=== PATIENT | female | born 1995 | race Two or more races ===

== ENCOUNTER 2017-06-27 04:01 | Inpatient (IN) | payer MEDICAID ==
[2017-06-27] MEDS ORDERED: BETAMET NA PHOS/AC(6 MG/ML) 5ML INJ IM (05:00)
[2017-06-27] MEDS: LACTATED RINGER'S 1,000 ML IV ×2 (05:05→20:31)
[2017-06-27 05:20] LABS: ADD MAN DIFF? NO
[2017-06-27] MEDS: MAGNESIUM SULFATE 4 GM/100 ML 100 ML IV (05:22)
[2017-06-27 05:26] LABS: ADD UMIC YES; UR ASCORBIC ACID NEGATIVE (NEGATIVE); UR BACTERIA FEW /HPF (NONE SEEN); UR BILIRUBIN (Dip) NEGATIVE (NEGATIVE); UR BLOOD (Dip) NEGATIVE (NEGATIVE); UR CLARITY CLEAR (CLEAR); UR COLOR STRAW (YELLOW); UR GLUCOSE (Dip) NEGATIVE (NEGATIVE); UR KETONES (Dip) 1+ mg/dL (NEGATIVE); UR LEUKOCYTE ESTERASE (Dip) TRACE Leu/ul (NEGATIVE); UR NITRITE (Dip) NEGATIVE (NEGATIVE); UR RBC 0 /HPF (0-5); UR SPECIFIC GRAVITY (Dip) 1.008 (1.003-1.030); UR TOTAL PROTEIN (Dip) NEGATIVE (NEGATIVE); UR UROBILINOGEN (Dip) NEGATIVE (NEGATIVE); UR WBC 3 /HPF (0-5)
[2017-06-27 05:28] LABS: BASOPHIL # 0.1 10^3/ul (0.0-0.1); BASOPHILS % 0.7 % (0.0-2.0); EOSINOPHILS # 0.1 10^3/ul (0.0-0.5); EOSINOPHILS % 1.9 % (0.0-7.0); HEMATOCRIT 32.1 % (37.0-47.0); LYMPHOCYTES # 2.1 10^3/ul (0.8-2.9); LYMPHOCYTES % 27.6 % (15.0-51.0); MEAN CORPUSCULAR HGB CONC 34.3 g/dl (32.0-37.0); MEAN CORPUSCULAR VOLUME 96.4 fl (82.0-101.0); MEAN PLATELET VOLUME 10.8 fl (7.4-10.4); MONOCYTE # 0.6 10^3/ul (0.3-0.9); MONOCYTES % 7.9 % (0.0-11.0); NEUTROPHIL # 4.6 10^3/ul (1.6-7.5); NEUTROPHILS % 61.4 % (39.0-77.0); PLATELET COUNT 201 10^3/UL (140-415); RED BLOOD COUNT 3.33 10^6/ul (4.20-5.40); RED CELL DISTRIBUTION WIDTH 12.9 % (11.5-14.5)
[2017-06-27 05:28] LABS: WHITE BLOOD COUNT 7.6 10^3/ul (4.8-10.8)
[2017-06-27 05:48] LABS: ALANINE AMINOTRANSFERASE 35 IU/L (13-69); ALBUMIN 3.3 g/dl (3.3-4.9); ALBUMIN/GLOBULIN RATIO 1.13; ALKALINE PHOSPHATASE 73 IU/L (42-121); ANION GAP 13 (8-16); ASPARTATE AMINO TRANSFERASE 34 IU/L (15-46); BLOOD UREA NITROGEN 8 mg/dl (7-20); CALCIUM 9.2 mg/dl (8.4-10.2); CARBON DIOXIDE 26 mmol/L (21-31); CHLORIDE 106 mmol/L (97-110); GLUCOSE 78 mg/dl (70-220); POTASSIUM 3.8 mmol/L (3.5-5.1); SODIUM 141 mmol/L (135-144); TOTAL PROTEIN 6.2 g/dl (6.1-8.1)
[2017-06-27] MEDS: MAGNESIUM SULFATE 20 GM/500 ML 500 ML IV ×2 (05:57→16:18)
[2017-06-27] MEDS: AMPICILLIN 2 GM/NS (PMX) 100 ML IV (06:00)
[2017-06-27] MEDS: BETAMET NA PHOS/AC(6 MG/ML) 5ML INJ IM ×2 (06:06→09:00)
[2017-06-27] MEDS: INDOMETHACIN 50 MG PO (08:00)
[2017-06-27] MEDS: ASPIRIN 81 MG TAB PO (08:57)
[2017-06-27] MEDS: AMPICILLIN 1 GM/NS (PMX) 50 ML IV ×4 (09:53→22:16)
[2017-06-27 11:27] LABS: INR 1.06; PROTIME 13.9 Sec (11.9-14.9); PT RATIO 1.1
[2017-06-27 11:28] LABS: PARTIAL THROMBOPLASTIN TIME 26.3 Sec (25.0-35.0)
[2017-06-27 11:57] LABS: HEPATITIS B SURFACE ANTIGEN NEGATIVE (NEGATIVE)
[2017-06-27 12:14] LABS: HIV 1&2 ANTIBODY NEGATIVE (NEGATIVE)
[2017-06-27 12:35] LABS: MAGNESIUM 1.8 mg/dl (1.7-2.5)
[2017-06-27] MEDS: INDOMETHACIN 25 MG PO (14:17)
[2017-06-27 18:40] LABS: MAGNESIUM 5.8 mg/dl (1.7-2.5)
[2017-06-27 23:17] LABS: RAPID PLASMA REAGIN NONREACTIVE (NR)
[2017-06-28] MEDS: INDOMETHACIN 25 MG PO ×5 (00:05→23:47)
[2017-06-28] MEDS: MAGNESIUM SULFATE 20 GM/500 ML 500 ML IV ×3 (00:40→21:37)
[2017-06-28] MEDS: AMPICILLIN 1 GM/NS (PMX) 50 ML IV ×6 (02:46→22:22)
[2017-06-28] MEDS: BETAMET NA PHOS/AC(6 MG/ML) 5ML INJ IM (06:27)
[2017-06-28 06:31] LABS: MAGNESIUM 6.2 mg/dl (1.7-2.5)
[2017-06-28] MEDS ORDERED: INDOMETHACIN 25 MG PO (08:00)
[2017-06-28] MEDS: ASPIRIN 81 MG TAB PO (09:50)
[2017-06-28] MEDS: LACTATED RINGER'S 1,000 ML IV (12:04)
[2017-06-29] MEDS: AMPICILLIN 1 GM/NS (PMX) 50 ML IV ×2 (02:15→05:55)
[2017-06-29] MEDS: LACTATED RINGER'S 1,000 ML IV ×5 (02:20→15:16)
[2017-06-29] MEDS: INDOMETHACIN 25 MG PO ×3 (05:54→18:27)
[2017-06-29] MEDS: MAGNESIUM SULFATE 20 GM/500 ML 500 ML IV (07:10)
[2017-06-29 11:22] LABS: RUBELLA ANTIBODY - IGG 7.59 index; RUBELLA ANTIBODY - IGM <20.00 AU/mL
[2017-06-29] MEDS: ASPIRIN 81 MG TAB PO (12:42)
[2017-06-30] MEDS: INDOMETHACIN 25 MG PO ×5 (01:14→23:35)
[2017-06-30] MEDS: FAMOTIDINE 20 MG INJ IV ×2 (01:25→20:59)
[2017-06-30] MEDS: LACTATED RINGER'S 1,000 ML IV ×2 (02:30→05:57)
[2017-06-30] MEDS ORDERED: FAMOTIDINE 20 MG INJ IV (09:00)
[2017-06-30] MEDS: ASPIRIN 81 MG TAB PO (09:45)
[2017-07-01] MEDS: INDOMETHACIN 25 MG PO ×2 (05:59→12:34)
[2017-07-01] MEDS: ASPIRIN 81 MG TAB PO (10:36)
[2017-07-01] MEDS: FAMOTIDINE 20 MG INJ IV ×2 (10:36→22:30)
[2017-07-02] MEDS: ASPIRIN 81 MG TAB PO (08:57)
[2017-07-02] MEDS: FAMOTIDINE 20 MG INJ IV ×2 (08:59→21:00)
[2017-07-02] MEDS: FERROUS SULFATE (EC) 325 MG TAB PO (15:50)
[2017-07-02] MEDS: POLYETHYLENE GLYCOL 17 GM PACKET PO (15:50)
[2017-07-02] MEDS: PRENATAL VITAMIN PO (15:50)
[2017-07-03] MEDS: PRENATAL VITAMIN PO (08:39)
[2017-07-03] MEDS: ASPIRIN 81 MG TAB PO (08:39)
[2017-07-03] MEDS: FERROUS SULFATE (EC) 325 MG TAB PO (08:39)
[2017-07-03] MEDS: POLYETHYLENE GLYCOL 17 GM PACKET PO (09:00)
[2017-07-03] MEDS: FAMOTIDINE 20 MG INJ IV ×2 (09:00→21:00)
[2017-07-04] MEDS: FERROUS SULFATE (EC) 325 MG TAB PO (08:28)
[2017-07-04] MEDS: PRENATAL VITAMIN PO (08:28)
[2017-07-04] MEDS: ASPIRIN 81 MG TAB PO (08:28)
[2017-07-04] MEDS: POLYETHYLENE GLYCOL 17 GM PACKET PO (08:29)
[2017-07-04] MEDS: FAMOTIDINE 20 MG INJ IV (08:29)
[2017-07-05] MEDS: ASPIRIN 81 MG TAB PO (09:22)
[2017-07-05] MEDS: FERROUS SULFATE (EC) 325 MG TAB PO (09:22)
[2017-07-05] MEDS: POLYETHYLENE GLYCOL 17 GM PACKET PO (09:23)
[2017-07-05] MEDS: PRENATAL VITAMIN PO (09:23)
== END 2017-07-05 12:10 | disposition home or self-care (01) | DRG 782 ==
LOC: PP1 07-02 15:25 → OBT 04:01 → L-D 04:02 → OBT 04:52 → L-D 04:54
DX: O26.872 Cervical shortening, second trimester (principal); O30.002 Twin pregnancy, unspecified number of placenta and unspecified number of amniotic sacs, second trimester; Z3A.26 26 weeks gestation of pregnancy
CPT/HCPCS: 76815; 76816; 76817; 76818; 80053; 81001; 83735; 85025; 85610; 85730; 86592; 86703; 86762; 86850; 86900; 86901; 87340

== ENCOUNTER 2017-07-09 22:47 | Outpatient (CLI) | payer OTHER, MEDICAID ==
[2017-07-10 00:22] LABS: ADD MAN DIFF? NO
[2017-07-10 00:23] LABS: BASOPHILS % 0.5 % (0.0-2.0); EOSINOPHILS # 0.2 10^3/ul (0.0-0.5); EOSINOPHILS % 1.7 % (0.0-7.0); HEMATOCRIT 30.8 % (37.0-47.0); HEMOGLOBIN 10.4 g/dl (12.0-16.0); LYMPHOCYTES # 2.2 10^3/ul (0.8-2.9); LYMPHOCYTES % 24.8 % (15.0-51.0); MEAN CORPUSCULAR HGB CONC 33.8 g/dl (32.0-37.0); MEAN CORPUSCULAR VOLUME 97.8 fl (82.0-101.0); MEAN PLATELET VOLUME 10.6 fl (7.4-10.4); MONOCYTE # 0.8 10^3/ul (0.3-0.9); MONOCYTES % 8.6 % (0.0-11.0); NEUTROPHIL # 5.6 10^3/ul (1.6-7.5); NEUTROPHILS % 62.4 % (39.0-77.0); PLATELET COUNT 232 10^3/UL (140-415); RED BLOOD COUNT 3.15 10^6/ul (4.20-5.40); RED CELL DISTRIBUTION WIDTH 12.7 % (11.5-14.5)
[2017-07-10 00:23] LABS: WHITE BLOOD COUNT 8.9 10^3/ul (4.8-10.8)
[2017-07-10 00:40] LABS: ADD UMIC YES; UR ASCORBIC ACID NEGATIVE (NEGATIVE); UR BACTERIA FEW /HPF (NONE SEEN); UR BILIRUBIN (Dip) NEGATIVE (NEGATIVE); UR BLOOD (Dip) NEGATIVE (NEGATIVE); UR CLARITY SLIGHTLY CLOUDY (CLEAR); UR COLOR YELLOW (YELLOW); UR GLUCOSE (Dip) NEGATIVE (NEGATIVE); UR KETONES (Dip) NEGATIVE (NEGATIVE); UR LEUKOCYTE ESTERASE (Dip) 3+ Leu/ul (NEGATIVE); UR NITRITE (Dip) NEGATIVE (NEGATIVE); UR RBC 1 /HPF (0-5); UR SPECIFIC GRAVITY (Dip) 1.011 (1.003-1.030); UR SQUAMOUS EPITHELIAL CELL FEW /HPF (FEW); UR TOTAL PROTEIN (Dip) NEGATIVE (NEGATIVE); UR UROBILINOGEN (Dip) NEGATIVE (NEGATIVE); UR WBC 18 /HPF (0-5)
== END 2017-07-10 01:38 | disposition home or self-care (01) ==
LOC: OBT 22:47 → L-D 22:48
DX: O23.43 Unspecified infection of urinary tract in pregnancy, third trimester (principal); O30.003 Twin pregnancy, unspecified number of placenta and unspecified number of amniotic sacs, third trimester; Z3A.28 28 weeks gestation of pregnancy
CPT/HCPCS: 36415; 76815; 76817; 76818; 81001; 85025

== ENCOUNTER 2017-07-25 13:35 | Inpatient (IN) | payer OTHER ==
[2017-07-25 15:34] LABS: ADD UMIC YES; UR ASCORBIC ACID NEGATIVE (NEGATIVE); UR BACTERIA FEW /HPF (NONE SEEN); UR BILIRUBIN (Dip) NEGATIVE (NEGATIVE); UR BLOOD (Dip) 1+ mg/dL (NEGATIVE); UR CLARITY SLIGHTLY CLOUDY (CLEAR); UR COLOR YELLOW (YELLOW); UR GLUCOSE (Dip) NEGATIVE (NEGATIVE); UR KETONES (Dip) NEGATIVE (NEGATIVE); UR LEUKOCYTE ESTERASE (Dip) 2+ Leu/ul (NEGATIVE); UR NITRITE (Dip) NEGATIVE (NEGATIVE); UR RBC 17 /HPF (0-5); UR SPECIFIC GRAVITY (Dip) 1.009 (1.003-1.030); UR SQUAMOUS EPITHELIAL CELL FEW /HPF (FEW); UR TOTAL PROTEIN (Dip) NEGATIVE (NEGATIVE); UR UROBILINOGEN (Dip) NEGATIVE (NEGATIVE); UR WBC 5 /HPF (0-5)
[2017-07-25 16:11] LABS: ADD MAN DIFF? NO
[2017-07-25 16:12] LABS: BASOPHILS % 0.5 % (0.0-2.0); EOSINOPHILS # 0.3 10^3/ul (0.0-0.5); EOSINOPHILS % 4.2 % (0.0-7.0); HEMATOCRIT 33.4 % (37.0-47.0); HEMOGLOBIN 11.2 g/dl (12.0-16.0); LYMPHOCYTES # 1.5 10^3/ul (0.8-2.9); LYMPHOCYTES % 20.1 % (15.0-51.0); MEAN CORPUSCULAR HEMOGLOBIN 32.7 pg (29.0-33.0); MEAN CORPUSCULAR HGB CONC 33.5 g/dl (32.0-37.0); MEAN CORPUSCULAR VOLUME 97.7 fl (82.0-101.0); MEAN PLATELET VOLUME 10.9 fl (7.4-10.4); MONOCYTE # 0.5 10^3/ul (0.3-0.9); MONOCYTES % 6.8 % (0.0-11.0); NEUTROPHILS % 67.3 % (39.0-77.0); PLATELET COUNT 162 10^3/UL (140-415); RED BLOOD COUNT 3.42 10^6/ul (4.20-5.40); RED CELL DISTRIBUTION WIDTH 13.2 % (11.5-14.5)
[2017-07-25 16:12] LABS: WHITE BLOOD COUNT 7.5 10^3/ul (4.8-10.8)
[2017-07-25 16:32] LABS: INR 1.05; PARTIAL THROMBOPLASTIN TIME 26.7 Sec (25.0-35.0); PROTIME 13.8 Sec (11.9-14.9); PT RATIO 1.1
[2017-07-25 16:33] LABS: ALANINE AMINOTRANSFERASE 20 IU/L (13-69); ALBUMIN 3.4 g/dl (3.3-4.9); ALBUMIN/GLOBULIN RATIO 1.09; ALKALINE PHOSPHATASE 87 IU/L (42-121); ANION GAP 12 (8-16); ASPARTATE AMINO TRANSFERASE 19 IU/L (15-46); BILIRUBIN,INDIRECT 0.2 mg/dl (0-1.1); BILIRUBIN,TOTAL 0.2 mg/dl (0.2-1.3); BLOOD UREA NITROGEN 14 mg/dl (7-20); CALCIUM 9.2 mg/dl (8.4-10.2); CARBON DIOXIDE 27 mmol/L (21-31); CHLORIDE 104 mmol/L (97-110); CREATININE 0.39 mg/dl (0.44-1.00); GLUCOSE 99 mg/dl (70-220); POTASSIUM 3.7 mmol/L (3.5-5.1); SODIUM 139 mmol/L (135-144); TOTAL PROTEIN 6.5 g/dl (6.1-8.1)
[2017-07-25 18:34] LABS: FIBRIN SPLIT PRODUCT <10 ug/ml (<10)
[2017-07-25] MEDS: URSODIOL 300 MG CAP PO (20:45)
[2017-07-25] MEDS: CALCIUM CARBONATE 1.25 GM TAB PO (20:45)
[2017-07-25] MEDS: PRENATAL VITAMIN PO (20:46)
[2017-07-26] MEDS: URSODIOL 300 MG CAP PO ×3 (08:50→21:38)
[2017-07-26] MEDS: FERROUS SULFATE (EC) 325 MG TAB PO (08:50)
[2017-07-26] MEDS: CALCIUM CARBONATE 1.25 GM TAB PO (08:51)
[2017-07-26] MEDS: PRENATAL VITAMIN PO (08:51)
[2017-07-26] MEDS: ASPIRIN (EC) 81 MG TAB PO (08:51)
[2017-07-26] MEDS ORDERED: PRENATAL VITAMIN PO (09:00)
[2017-07-26] MEDS ORDERED: CALCIUM CARBONATE 1.25 GM TAB PO (09:00)
[2017-07-26] MEDS: DOCUSATE SODIUM 100 MG CAP PO ×2 (12:47→21:38)
[2017-07-26] MEDS: CEFAZOLIN 1 GM/50 ML (PMX) 50 ML IVPB ×2 (13:49→21:37)
[2017-07-27] MEDS: CEFAZOLIN 1 GM/50 ML (PMX) 50 ML IVPB ×3 (05:27→23:31)
[2017-07-27] MEDS: URSODIOL 300 MG CAP PO ×4 (08:04→20:36)
[2017-07-27 08:15] LABS: ADD MAN DIFF? NO
[2017-07-27 08:28] LABS: BASOPHIL # 0.1 10^3/ul (0.0-0.1); BASOPHILS % 0.7 % (0.0-2.0); EOSINOPHILS # 0.4 10^3/ul (0.0-0.5); EOSINOPHILS % 4.1 % (0.0-7.0); HEMATOCRIT 37.5 % (37.0-47.0); HEMOGLOBIN 12.3 g/dl (12.0-16.0); LYMPHOCYTES # 2.1 10^3/ul (0.8-2.9); LYMPHOCYTES % 23.3 % (15.0-51.0); MEAN CORPUSCULAR HEMOGLOBIN 32.5 pg (29.0-33.0); MEAN CORPUSCULAR HGB CONC 32.8 g/dl (32.0-37.0); MEAN CORPUSCULAR VOLUME 98.9 fl (82.0-101.0); MONOCYTE # 0.7 10^3/ul (0.3-0.9); MONOCYTES % 7.4 % (0.0-11.0); NEUTROPHIL # 5.7 10^3/ul (1.6-7.5); NEUTROPHILS % 62.8 % (39.0-77.0); PLATELET COUNT 163 10^3/UL (140-415); RED BLOOD COUNT 3.79 10^6/ul (4.20-5.40); RED CELL DISTRIBUTION WIDTH 13.4 % (11.5-14.5)
[2017-07-27 08:55] LABS: ALANINE AMINOTRANSFERASE 20 IU/L (13-69); ALBUMIN 3.6 g/dl (3.3-4.9); ALBUMIN/GLOBULIN RATIO 1.16; ALKALINE PHOSPHATASE 95 IU/L (42-121); ANION GAP 12 (8-16); ASPARTATE AMINO TRANSFERASE 20 IU/L (15-46); BILIRUBIN,INDIRECT 0.2 mg/dl (0-1.1); BILIRUBIN,TOTAL 0.2 mg/dl (0.2-1.3); BLOOD UREA NITROGEN 10 mg/dl (7-20); CALCIUM 8.6 mg/dl (8.4-10.2); CARBON DIOXIDE 28 mmol/L (21-31); CHLORIDE 105 mmol/L (97-110); CREATININE 0.43 mg/dl (0.44-1.00); GLUCOSE 78 mg/dl (70-220); POTASSIUM 4.1 mmol/L (3.5-5.1); SODIUM 141 mmol/L (135-144); TOTAL PROTEIN 6.7 g/dl (6.1-8.1)
[2017-07-27] MEDS: FERROUS SULFATE (EC) 325 MG TAB PO (09:00)
[2017-07-27] MEDS: CALCIUM CARBONATE 1.25 GM TAB PO (09:33)
[2017-07-27] MEDS: PRENATAL VITAMIN PO (09:33)
[2017-07-27] MEDS: DOCUSATE SODIUM 100 MG CAP PO ×3 (09:33→20:36)
[2017-07-27] MEDS: ASPIRIN (EC) 81 MG TAB PO (09:33)
[2017-07-27] MEDS: BETAMET NA PHOS/AC(6 MG/ML) 5ML INJ IM (09:49)
[2017-07-27] MEDS: MAGNESIUM SULFATE 4 GM/100 ML 100 ML IV (09:51)
[2017-07-27] MEDS: MAGNESIUM SULFATE 20 GM/500 ML 500 ML IV ×2 (09:52→20:39)
[2017-07-27] MEDS: LACTATED RINGER'S 1,000 ML IV ×2 (11:10→22:45)
[2017-07-27 18:43] LABS: MAGNESIUM 4.6 mg/dl (1.7-2.5)
[2017-07-28 01:10] LABS: MAGNESIUM 5.1 mg/dl (1.7-2.5)
[2017-07-28] MEDS: LACTATED RINGER'S 1,000 ML IV ×2 (02:38→15:52)
[2017-07-28] MEDS: CEFAZOLIN 1 GM/50 ML (PMX) 50 ML IVPB ×3 (05:51→22:18)
[2017-07-28] MEDS: MAGNESIUM SULFATE 20 GM/500 ML 500 ML IV ×2 (06:45→15:56)
[2017-07-28] MEDS: ASPIRIN (EC) 81 MG TAB PO (09:11)
[2017-07-28] MEDS: PRENATAL VITAMIN PO (09:11)
[2017-07-28] MEDS: URSODIOL 300 MG CAP PO ×3 (09:11→21:01)
[2017-07-28] MEDS: BETAMET NA PHOS/AC(6 MG/ML) 5ML INJ IM (09:11)
[2017-07-28] MEDS: CALCIUM CARBONATE 1.25 GM TAB PO (09:11)
[2017-07-28] MEDS: FERROUS SULFATE (EC) 325 MG TAB PO (09:11)
[2017-07-28] MEDS: DOCUSATE SODIUM 100 MG CAP PO ×3 (09:11→21:01)
[2017-07-28 13:32] LABS: MAGNESIUM 5.4 mg/dl (1.7-2.5)
[2017-07-28 19:03] LABS: MAGNESIUM 5.1 mg/dl (1.7-2.5)
[2017-07-29] MEDS: MAGNESIUM SULFATE 20 GM/500 ML 500 ML IV (01:03)
[2017-07-29 01:16] LABS: MAGNESIUM 5.2 mg/dl (1.7-2.5)
[2017-07-29] MEDS: LACTATED RINGER'S 1,000 ML IV ×2 (05:45→23:44)
[2017-07-29] MEDS: CEFAZOLIN 1 GM/50 ML (PMX) 50 ML IVPB ×3 (05:45→21:31)
[2017-07-29 08:54] LABS: MAGNESIUM 5.4 mg/dl (1.7-2.5)
[2017-07-29] MEDS: ASPIRIN (EC) 81 MG TAB PO (08:54)
[2017-07-29] MEDS: URSODIOL 300 MG CAP PO ×3 (08:54→21:30)
[2017-07-29] MEDS: FERROUS SULFATE (EC) 325 MG TAB PO (09:00)
[2017-07-29] MEDS: PRENATAL VITAMIN PO (09:00)
[2017-07-29] MEDS: CALCIUM CARBONATE 1.25 GM TAB PO (09:00)
[2017-07-29] MEDS: DOCUSATE SODIUM 100 MG CAP PO ×3 (09:00→21:30)
[2017-07-29 15:56] LABS: CHENODEOXYCHOLIC ACID 0.8 umol/L (< OR = 3.1); CHOLIC ACID 0.8 umol/L (< OR = 1.8); DEOXYCHOLIC ACID 2.3 umol/L (< OR = 2.4); TOTAL BILE ACIDS 3.9 umol/L (< OR = 6.8)
[2017-07-30] MEDS: CEFAZOLIN 1 GM/50 ML (PMX) 50 ML IVPB ×3 (05:50→21:33)
[2017-07-30] MEDS: DOCUSATE SODIUM 100 MG CAP PO ×3 (08:26→20:46)
[2017-07-30] MEDS: URSODIOL 300 MG CAP PO (08:26)
[2017-07-30] MEDS: FERROUS SULFATE (EC) 325 MG TAB PO (08:26)
[2017-07-30] MEDS: ASPIRIN (EC) 81 MG TAB PO (08:26)
[2017-07-30] MEDS: CALCIUM CARBONATE 1.25 GM TAB PO (08:27)
[2017-07-30] MEDS: PRENATAL VITAMIN PO (08:27)
[2017-07-30] MEDS: NIFEdipine 10 MG CAP PO ×3 (11:39→23:38)
[2017-07-30] MEDS: LACTATED RINGER'S 1,000 ML IV (13:25)
[2017-07-31] MEDS: LACTATED RINGER'S 1,000 ML IV ×3 (02:53→23:20)
[2017-07-31] MEDS: MAGNESIUM SULFATE 20 GM/500 ML 500 ML IV ×2 (05:02→19:13)
[2017-07-31] MEDS: CEFAZOLIN 1 GM/50 ML (PMX) 50 ML IVPB ×2 (05:41→13:50)
[2017-07-31] MEDS: DOCUSATE SODIUM 100 MG CAP PO ×3 (08:51→21:07)
[2017-07-31] MEDS: ASPIRIN (EC) 81 MG TAB PO (08:51)
[2017-07-31] MEDS: PRENATAL VITAMIN PO (08:51)
[2017-07-31] MEDS: FERROUS SULFATE (EC) 325 MG TAB PO (08:51)
[2017-07-31] MEDS: CALCIUM CARBONATE 1.25 GM TAB PO (08:51)
[2017-07-31 13:35] LABS: MAGNESIUM 4.3 mg/dl (1.7-2.5)
[2017-07-31 19:01] LABS: MAGNESIUM 4.8 mg/dl (1.7-2.5)
[2017-08-01 00:17] LABS: MAGNESIUM 4.6 mg/dl (1.7-2.5)
[2017-08-01] MEDS: MAGNESIUM SULFATE 20 GM/500 ML 500 ML IV (00:30)
[2017-08-01] MEDS: NIFEdipine 10 MG CAP PO ×3 (05:49→17:42)
[2017-08-01] MEDS: CALCIUM CARBONATE 1.25 GM TAB PO (08:40)
[2017-08-01] MEDS: PRENATAL VITAMIN PO (08:40)
[2017-08-01] MEDS: FERROUS SULFATE (EC) 325 MG TAB PO (08:40)
[2017-08-01] MEDS: DOCUSATE SODIUM 100 MG CAP PO ×3 (08:40→21:18)
[2017-08-01] MEDS: ASPIRIN (EC) 81 MG TAB PO (08:40)
[2017-08-01] MEDS: LACTATED RINGER'S 1,000 ML IV (13:29)
[2017-08-02] MEDS: NIFEdipine 10 MG CAP PO ×5 (00:15→23:41)
[2017-08-02] MEDS: LACTATED RINGER'S 1,000 ML IV ×2 (03:06→18:10)
[2017-08-02] MEDS: DOCUSATE SODIUM 100 MG CAP PO ×3 (08:34→21:11)
[2017-08-02] MEDS: CALCIUM CARBONATE 1.25 GM TAB PO (08:34)
[2017-08-02] MEDS: ASPIRIN (EC) 81 MG TAB PO (08:35)
[2017-08-02] MEDS: FERROUS SULFATE (EC) 325 MG TAB PO (08:35)
[2017-08-02] MEDS: PRENATAL VITAMIN PO (08:35)
[2017-08-03] MEDS: NIFEdipine 10 MG CAP PO ×4 (05:42→23:51)
[2017-08-03] MEDS: CALCIUM CARBONATE 1.25 GM TAB PO (08:09)
[2017-08-03] MEDS: DOCUSATE SODIUM 100 MG CAP PO ×3 (08:09→21:40)
[2017-08-03] MEDS: PRENATAL VITAMIN PO (08:09)
[2017-08-03] MEDS: ASPIRIN (EC) 81 MG TAB PO (08:09)
[2017-08-03] MEDS: FERROUS SULFATE (EC) 325 MG TAB PO (08:09)
[2017-08-04] MEDS: NIFEdipine 10 MG CAP PO ×4 (05:43→23:49)
[2017-08-04] MEDS: ASPIRIN (EC) 81 MG TAB PO (08:22)
[2017-08-04] MEDS: CALCIUM CARBONATE 1.25 GM TAB PO (08:22)
[2017-08-04] MEDS: DOCUSATE SODIUM 100 MG CAP PO ×3 (08:22→20:37)
[2017-08-04] MEDS: FERROUS SULFATE (EC) 325 MG TAB PO (08:22)
[2017-08-04] MEDS: PRENATAL VITAMIN PO (08:22)
[2017-08-05] MEDS: NIFEdipine 10 MG CAP PO ×4 (05:44→23:38)
[2017-08-05] MEDS: FERROUS SULFATE (EC) 325 MG TAB PO (09:41)
[2017-08-05] MEDS: DOCUSATE SODIUM 100 MG CAP PO ×3 (09:41→21:26)
[2017-08-05] MEDS: PRENATAL VITAMIN PO (09:41)
[2017-08-05] MEDS: CALCIUM CARBONATE 1.25 GM TAB PO (09:42)
[2017-08-05] MEDS: ASPIRIN (EC) 81 MG TAB PO (09:42)
[2017-08-06] MEDS: NIFEdipine 10 MG CAP PO ×4 (05:48→23:35)
[2017-08-06] MEDS: ASPIRIN (EC) 81 MG TAB PO (09:35)
[2017-08-06] MEDS: FERROUS SULFATE (EC) 325 MG TAB PO (09:36)
[2017-08-06] MEDS: CALCIUM CARBONATE 1.25 GM TAB PO (09:36)
[2017-08-06] MEDS: PRENATAL VITAMIN PO (09:36)
[2017-08-06] MEDS: DOCUSATE SODIUM 100 MG CAP PO ×3 (09:36→20:56)
[2017-08-07] MEDS: NIFEdipine 10 MG CAP PO ×3 (06:05→17:54)
[2017-08-07] MEDS: PRENATAL VITAMIN PO (09:11)
[2017-08-07] MEDS: FERROUS SULFATE (EC) 325 MG TAB PO (09:11)
[2017-08-07] MEDS: DOCUSATE SODIUM 100 MG CAP PO ×3 (09:12→21:08)
[2017-08-07] MEDS: ASPIRIN (EC) 81 MG TAB PO (09:12)
[2017-08-07] MEDS: CALCIUM CARBONATE 1.25 GM TAB PO (09:13)
[2017-08-08] MEDS: NIFEdipine 10 MG CAP PO ×4 (00:05→19:03)
[2017-08-08] MEDS: CALCIUM CARBONATE 1.25 GM TAB PO (08:46)
[2017-08-08] MEDS: ASPIRIN (EC) 81 MG TAB PO (08:46)
[2017-08-08] MEDS: DOCUSATE SODIUM 100 MG CAP PO ×3 (08:46→21:09)
[2017-08-08] MEDS: FERROUS SULFATE (EC) 325 MG TAB PO (08:46)
[2017-08-08] MEDS: PRENATAL VITAMIN PO (08:46)
[2017-08-08 15:38] LABS: ADD MAN DIFF? NO
[2017-08-08 15:40] LABS: WHITE BLOOD COUNT 8.2 10^3/ul (4.8-10.8)
[2017-08-08 15:40] LABS: BASOPHIL # 0.1 10^3/ul (0.0-0.1); BASOPHILS % 0.7 % (0.0-2.0); EOSINOPHILS # 0.2 10^3/ul (0.0-0.5); EOSINOPHILS % 2.3 % (0.0-7.0); HEMATOCRIT 36.4 % (37.0-47.0); LYMPHOCYTES # 1.8 10^3/ul (0.8-2.9); MEAN CORPUSCULAR HEMOGLOBIN 31.6 pg (29.0-33.0); MEAN CORPUSCULAR VOLUME 95.8 fl (82.0-101.0); MEAN PLATELET VOLUME 11.1 fl (7.4-10.4); MONOCYTE # 0.5 10^3/ul (0.3-0.9); MONOCYTES % 5.5 % (0.0-11.0); NEUTROPHIL # 5.6 10^3/ul (1.6-7.5); NEUTROPHILS % 67.7 % (39.0-77.0); PLATELET COUNT 174 10^3/UL (140-415); RED CELL DISTRIBUTION WIDTH 13.3 % (11.5-14.5)
[2017-08-08 16:09] LABS: ALANINE AMINOTRANSFERASE 16 IU/L (13-69); ALBUMIN 3.8 g/dl (3.3-4.9); ALBUMIN/GLOBULIN RATIO 1.18; ALKALINE PHOSPHATASE 131 IU/L (42-121); ANION GAP 16 (8-16); ASPARTATE AMINO TRANSFERASE 19 IU/L (15-46); BILIRUBIN,INDIRECT 0.4 mg/dl (0-1.1); BILIRUBIN,TOTAL 0.4 mg/dl (0.2-1.3); BLOOD UREA NITROGEN 11 mg/dl (7-20); CALCIUM 9.4 mg/dl (8.4-10.2); CARBON DIOXIDE 24 mmol/L (21-31); CHLORIDE 104 mmol/L (97-110); CREATININE 0.43 mg/dl (0.44-1.00); GLUCOSE 123 mg/dl (70-220); POTASSIUM 3.9 mmol/L (3.5-5.1); SODIUM 140 mmol/L (135-144)
[2017-08-09] MEDS: NIFEdipine 10 MG CAP PO ×5 (00:19→23:33)
[2017-08-09] MEDS: ASPIRIN (EC) 81 MG TAB PO (08:47)
[2017-08-09] MEDS: FERROUS SULFATE (EC) 325 MG TAB PO (08:47)
[2017-08-09] MEDS: CALCIUM CARBONATE 1.25 GM TAB PO (08:47)
[2017-08-09] MEDS: PRENATAL VITAMIN PO (08:47)
[2017-08-09] MEDS: DOCUSATE SODIUM 100 MG CAP PO ×3 (08:47→21:33)
[2017-08-10] MEDS: NIFEdipine 10 MG CAP PO ×4 (05:50→23:39)
[2017-08-10] MEDS: CALCIUM CARBONATE 1.25 GM TAB PO (08:22)
[2017-08-10] MEDS: ASPIRIN (EC) 81 MG TAB PO (08:22)
[2017-08-10] MEDS: PRENATAL VITAMIN PO (08:22)
[2017-08-10] MEDS: FERROUS SULFATE (EC) 325 MG TAB PO (08:22)
[2017-08-10] MEDS: DOCUSATE SODIUM 100 MG CAP PO ×3 (08:22→21:28)
[2017-08-11] MEDS: NIFEdipine 10 MG CAP PO ×4 (05:43→23:41)
[2017-08-11] MEDS: DOCUSATE SODIUM 100 MG CAP PO ×3 (08:55→21:23)
[2017-08-11] MEDS: CALCIUM CARBONATE 1.25 GM TAB PO (08:55)
[2017-08-11] MEDS: FERROUS SULFATE (EC) 325 MG TAB PO (08:55)
[2017-08-11] MEDS: ASPIRIN (EC) 81 MG TAB PO (08:55)
[2017-08-11] MEDS: PRENATAL VITAMIN PO (08:55)
[2017-08-12] MEDS: NIFEdipine 10 MG CAP PO ×3 (05:42→18:26)
[2017-08-12] MEDS: ASPIRIN (EC) 81 MG TAB PO (09:55)
[2017-08-12] MEDS: PRENATAL VITAMIN PO (09:55)
[2017-08-12] MEDS: FERROUS SULFATE (EC) 325 MG TAB PO (09:56)
[2017-08-12] MEDS: CALCIUM CARBONATE 1.25 GM TAB PO (09:56)
[2017-08-12] MEDS: DOCUSATE SODIUM 100 MG CAP PO ×3 (09:56→21:20)
[2017-08-13] MEDS: NIFEdipine 10 MG CAP PO
[2017-08-13] MEDS: LACTATED RINGER'S 1,000 ML IV ×2 (02:54→15:46)
[2017-08-13] MEDS: MAGNESIUM SULFATE 4 GM/100 ML 100 ML IVPB (03:00)
[2017-08-13] MEDS: MAGNESIUM SULFATE 20 GM/500 ML 500 ML IV ×3 (03:37→23:53)
[2017-08-13 06:59] LABS: MAGNESIUM 4.6 mg/dl (1.7-2.5)
[2017-08-13] MEDS: PRENATAL VITAMIN PO (10:56)
[2017-08-13] MEDS: ASPIRIN (EC) 81 MG TAB PO (10:56)
[2017-08-13] MEDS: FERROUS SULFATE (EC) 325 MG TAB PO (10:56)
[2017-08-13] MEDS: CALCIUM CARBONATE 1.25 GM TAB PO (10:57)
[2017-08-13] MEDS: DOCUSATE SODIUM 100 MG CAP PO ×3 (10:57→21:25)
[2017-08-13 11:53] LABS: ADD MAN DIFF? NO
[2017-08-13 12:15] LABS: WHITE BLOOD COUNT 6.7 10^3/ul (4.8-10.8)
[2017-08-13 12:15] LABS: BASOPHIL # 0.1 10^3/ul (0.0-0.1); BASOPHILS % 0.8 % (0.0-2.0); EOSINOPHILS # 0.2 10^3/ul (0.0-0.5); EOSINOPHILS % 2.4 % (0.0-7.0); HEMATOCRIT 34.5 % (37.0-47.0); HEMOGLOBIN 11.5 g/dl (12.0-16.0); LYMPHOCYTES # 1.4 10^3/ul (0.8-2.9); LYMPHOCYTES % 21.2 % (15.0-51.0); MEAN CORPUSCULAR HEMOGLOBIN 32.4 pg (29.0-33.0); MEAN CORPUSCULAR HGB CONC 33.3 g/dl (32.0-37.0); MEAN CORPUSCULAR VOLUME 97.2 fl (82.0-101.0); MEAN PLATELET VOLUME 11.4 fl (7.4-10.4); MONOCYTE # 0.5 10^3/ul (0.3-0.9); MONOCYTES % 7.8 % (0.0-11.0); NEUTROPHIL # 4.4 10^3/ul (1.6-7.5); NEUTROPHILS % 66.6 % (39.0-77.0); PLATELET COUNT 156 10^3/UL (140-415); RED BLOOD COUNT 3.55 10^6/ul (4.20-5.40); RED CELL DISTRIBUTION WIDTH 13.2 % (11.5-14.5)
[2017-08-13 12:24] LABS: INR 1.04; PROTIME 13.7 Sec (11.9-14.9); PT RATIO 1.1
[2017-08-13 12:29] LABS: MAGNESIUM 5.3 mg/dl (1.7-2.5)
[2017-08-13 13:07] LABS: HEPATITIS B SURFACE ANTIBODY NEGATIVE (NEGATIVE)
[2017-08-13 14:56] LABS: RAPID PLASMA REAGIN NONREACTIVE (NR)
[2017-08-13] MEDS ORDERED: NIFEdipine 10 MG CAP PO (18:00)
[2017-08-13 19:23] LABS: MAGNESIUM 5.7 mg/dl (1.7-2.5)
[2017-08-14 01:04] LABS: MAGNESIUM 5.7 mg/dl (1.7-2.5)
[2017-08-14] MEDS: NIFEdipine 10 MG CAP PO ×3 (06:01→18:19)
[2017-08-14] MEDS: FERROUS SULFATE (EC) 325 MG TAB PO (11:07)
[2017-08-14] MEDS: PRENATAL VITAMIN PO (11:07)
[2017-08-14] MEDS: CALCIUM CARBONATE 1.25 GM TAB PO (11:07)
[2017-08-14] MEDS: ASPIRIN (EC) 81 MG TAB PO (11:08)
[2017-08-14] MEDS: DOCUSATE SODIUM 100 MG CAP PO ×3 (11:09→20:47)
[2017-08-15] MEDS: NIFEdipine 10 MG CAP PO ×5 (00:04→23:44)
[2017-08-15] MEDS: PRENATAL VITAMIN PO (09:04)
[2017-08-15] MEDS: ASPIRIN (EC) 81 MG TAB PO (09:04)
[2017-08-15] MEDS: DOCUSATE SODIUM 100 MG CAP PO ×3 (09:04→21:43)
[2017-08-15] MEDS: FERROUS SULFATE (EC) 325 MG TAB PO (09:04)
[2017-08-15] MEDS: CALCIUM CARBONATE 1.25 GM TAB PO (09:04)
[2017-08-15] MEDS: MUPIROCIN 2% 15 GM CR TOP (14:18)
[2017-08-16] MEDS: NIFEdipine 10 MG CAP PO ×4 (05:50→23:39)
[2017-08-16] MEDS: DOCUSATE SODIUM 100 MG CAP PO ×3 (09:56→20:59)
[2017-08-16] MEDS: PRENATAL VITAMIN PO (09:56)
[2017-08-16] MEDS: CALCIUM CARBONATE 1.25 GM TAB PO (09:56)
[2017-08-16] MEDS: FERROUS SULFATE (EC) 325 MG TAB PO (09:56)
[2017-08-16] MEDS: ASPIRIN (EC) 81 MG TAB PO (09:59)
[2017-08-16] MEDS ORDERED: CEFAZOLIN 2 GM/50 ML (PMX) 50 ML IV (14:30)
[2017-08-16] MEDS ORDERED: METHYLERGONOVINE 0.2 MG INJ IM (14:30)
[2017-08-16] MEDS ORDERED: OXYTOCIN 30 UNITS/LR 500 ML IV (14:30)
[2017-08-16] MEDS ORDERED: MISOPROSTOL 200 MCG TAB PR (14:30)
[2017-08-16] MEDS ORDERED: CARBOPROST 250 MCG INJ IM (14:30)
[2017-08-16] MEDS: LACTATED RINGER'S 1,000 ML IV ×2 (15:38→20:59)
[2017-08-16 16:02] LABS: ADD MAN DIFF? NO
[2017-08-16 16:05] LABS: WHITE BLOOD COUNT 7.3 10^3/ul (4.8-10.8)
[2017-08-16 16:05] LABS: BASOPHILS % 0.6 % (0.0-2.0); EOSINOPHILS # 0.2 10^3/ul (0.0-0.5); EOSINOPHILS % 2.1 % (0.0-7.0); HEMATOCRIT 34.8 % (37.0-47.0); HEMOGLOBIN 12.1 g/dl (12.0-16.0); LYMPHOCYTES # 1.5 10^3/ul (0.8-2.9); LYMPHOCYTES % 21.2 % (15.0-51.0); MEAN CORPUSCULAR HEMOGLOBIN 33.2 pg (29.0-33.0); MEAN CORPUSCULAR HGB CONC 34.8 g/dl (32.0-37.0); MEAN CORPUSCULAR VOLUME 95.3 fl (82.0-101.0); MEAN PLATELET VOLUME 11.2 fl (7.4-10.4); MONOCYTE # 0.5 10^3/ul (0.3-0.9); MONOCYTES % 6.6 % (0.0-11.0); NEUTROPHILS % 68.9 % (39.0-77.0); PLATELET COUNT 156 10^3/UL (140-415); RED BLOOD COUNT 3.65 10^6/ul (4.20-5.40); RED CELL DISTRIBUTION WIDTH 12.9 % (11.5-14.5)
[2017-08-16 16:27] LABS: INR 1.04; PARTIAL THROMBOPLASTIN TIME 27.4 Sec (25.0-35.0); PROTIME 13.7 Sec (11.9-14.9); PT RATIO 1.1
[2017-08-16] MEDS: NEOMYC/POLYMYX/BACIT 30 GM OINT TOP (20:59)
[2017-08-17] MEDS ORDERED: OXYTOCIN 10 UNIT INJ ×2 (01:24→02:13)
[2017-08-17] MEDS ORDERED: OXYTOCIN 30 UNITS/LR 500 ML IV ×2 (01:24→04:30)
[2017-08-17] MEDS ORDERED: METOCLOPRAMIDE 10 MG INJ (01:24)
[2017-08-17] MEDS ORDERED: EPHEDrine SULFATE 50 MG/5 ML SYG (01:24)
[2017-08-17] MEDS ORDERED: ONDANSETRON 4 MG INJ (01:24)
[2017-08-17] MEDS ORDERED: morphine SULFATE/PF (10 MG/10 ML) INJ (01:24)
[2017-08-17] MEDS ORDERED: BUPIVACAINE 0.75%/DEXT (SPINAL) 2 ML INJ (01:25)
[2017-08-17] MEDS ORDERED: NALOXONE (0.4 MG/ML) INJ IV (02:00)
[2017-08-17] MEDS ORDERED: morphine 2 MG INJ IV ×2 (02:00)
[2017-08-17] MEDS ORDERED: EPHEDrine SULFATE 50 MG/5 ML SYG IV (02:00)
[2017-08-17] MEDS ORDERED: ONDANSETRON 4 MG INJ IV (02:00)
[2017-08-17] MEDS ORDERED: KETOROLAC 30 MG INJ (02:58)
[2017-08-17] MEDS ORDERED: DIPHENHYDRAMINE 50 MG INJ (03:43)
[2017-08-17] MEDS: DIPHENHYDRAMINE 50 MG INJ IV (04:01)
[2017-08-17] MEDS: KETOROLAC 30 MG INJ IV ×3 (04:01→23:30)
[2017-08-17] MEDS: LACTATED RINGER'S 1,000 ML IV ×3 (04:12→20:51)
[2017-08-17] MEDS ORDERED: MISOPROSTOL 200 MCG TAB PR (04:30)
[2017-08-17] MEDS ORDERED: CARBOPROST 250 MCG INJ IM (04:30)
[2017-08-17] MEDS ORDERED: METHYLERGONOVINE 0.2 MG INJ IM (04:30)
[2017-08-17] MEDS: morphine SULFATE/PF (10 MG/10 ML) INJ SPINAL (04:58)
[2017-08-17] MEDS: OXYTOCIN 30 UNITS/LR 500 ML IV ×2 (05:01→10:13)
[2017-08-17] MEDS: NEOMYC/POLYMYX/BACIT 30 GM OINT TOP ×3 (09:00→21:00)
[2017-08-17 09:29] LABS: CBV Base Excess -3.7 mmol/L; CBV COHb 0.3 %; CBV Oxygen Sat 27.1 mmHG; CBV Total Hemglobin 16.7 g/dl; Cord Blood Venous pO2 14.1 mmHG (15.0-45.0); Fraction OxyHgb Cord Venous 26.6 %; MODE ROOM AIR; MetHgb Cord Venous 1.7 %; Sample Type CBV; Site CORD
[2017-08-17 09:30] LABS: Arterial Cord Blood pCO2 53.2 mmHG (25-50); CBA Base Excess -6.4 mmol/L; CBA COHb 0.3 %; CBA Total Hemglobin 15.8 g/dl; Fraction OxyHgb Cord Arterial 12.1 %; MODE ROOM AIR; MetHgb Cord Arterial 1.9 %; Sample Type CBA; Site CORD
[2017-08-17 10:01] LABS: ADD MAN DIFF? NO
[2017-08-17 10:03] LABS: WHITE BLOOD COUNT 9.9 10^3/ul (4.8-10.8)
[2017-08-17 10:03] LABS: BASOPHILS % 0.3 % (0.0-2.0); EOSINOPHILS # 0.1 10^3/ul (0.0-0.5); HEMATOCRIT 34.1 % (37.0-47.0); HEMOGLOBIN 11.6 g/dl (12.0-16.0); LYMPHOCYTES # 1.7 10^3/ul (0.8-2.9); LYMPHOCYTES % 17.2 % (15.0-51.0); MEAN CORPUSCULAR HEMOGLOBIN 32.6 pg (29.0-33.0); MEAN CORPUSCULAR VOLUME 95.8 fl (82.0-101.0); MONOCYTE # 0.8 10^3/ul (0.3-0.9); NEUTROPHIL # 7.2 10^3/ul (1.6-7.5); NEUTROPHILS % 72.9 % (39.0-77.0); PLATELET COUNT 138 10^3/UL (140-415); RED BLOOD COUNT 3.56 10^6/ul (4.20-5.40); RED CELL DISTRIBUTION WIDTH 12.6 % (11.5-14.5)
[2017-08-17] MEDS: SENNA/DOCUSATE NA (8.6MG/50MG) TAB PO ×2 (10:13→21:00)
[2017-08-17 17:19] LABS: RAPID PLASMA REAGIN NONREACTIVE (NR)
[2017-08-17] MEDS: LANOLIN 7 GM TUBE TOP (18:23)
[2017-08-18] MEDS: HYDROCODONE/APAP (5/325) TAB PO ×4 (03:40→23:09)
[2017-08-18] MEDS: LACTATED RINGER'S 1,000 ML IV ×2 (04:12→12:12)
[2017-08-18] MEDS: NEOMYC/POLYMYX/BACIT 30 GM OINT TOP ×3 (09:00→21:00)
[2017-08-18] MEDS: SENNA/DOCUSATE NA (8.6MG/50MG) TAB PO ×2 (10:42→22:17)
[2017-08-18] MEDS ORDERED: MAGNESIUM HYDROXIDE 30ML CUP PO (14:47)
[2017-08-19] MEDS: BISACODYL 10 MG SUPP PR (00:08)
[2017-08-19] MEDS: HYDROCODONE/APAP (5/325) TAB PO ×3 (05:39→19:01)
[2017-08-19] MEDS: SENNA/DOCUSATE NA (8.6MG/50MG) TAB PO ×2 (08:29→22:06)
[2017-08-19] MEDS ORDERED: BISACODYL 10 MG SUPP PR (09:00)
[2017-08-19] MEDS: LACTATED RINGER'S 1,000 ML IV (20:12)
[2017-08-19] MEDS: NEOMYC/POLYMYX/BACIT 30 GM OINT TOP (21:00)
[2017-08-19] MEDS: MAGNESIUM HYDROXIDE 30ML CUP PO (22:06)
[2017-08-19] MEDS: DOCUSATE SODIUM 100 MG CAP PO (22:06)
[2017-08-20] MEDS: BISACODYL 10 MG SUPP PR (01:17)
[2017-08-20] MEDS ORDERED: MAGNESIUM HYDROXIDE 30ML CUP PO (06:00)
[2017-08-20] MEDS ORDERED: BISACODYL 10 MG SUPP PR (06:00)
[2017-08-20] MEDS: NEOMYC/POLYMYX/BACIT 30 GM OINT TOP ×3 (09:00→21:00)
[2017-08-20] MEDS: SENNA/DOCUSATE NA (8.6MG/50MG) TAB PO ×2 (10:02→21:05)
[2017-08-20] MEDS: DOCUSATE SODIUM 100 MG CAP PO ×3 (10:02→21:05)
[2017-08-20] MEDS: IBUPROFEN 800 MG TAB PO ×2 (10:37→23:44)
[2017-08-20] MEDS: DIPHTH/TET/ACEL PERTUSS (ADULT) 0.5 ML VIAL IM* (17:11)
[2017-08-20] MEDS: HYDROCODONE/APAP (5/325) TAB PO (17:55)
[2017-08-21] MEDS: SENNA/DOCUSATE NA (8.6MG/50MG) TAB PO (08:54)
[2017-08-21] MEDS: DOCUSATE SODIUM 100 MG CAP PO ×2 (08:54→13:00)
[2017-08-21] MEDS: NEOMYC/POLYMYX/BACIT 30 GM OINT TOP ×2 (09:00→13:00)
[2017-08-21 09:11] LABS: ADD MAN DIFF? NO
[2017-08-21 09:18] LABS: WHITE BLOOD COUNT 6.9 10^3/ul (4.8-10.8)
[2017-08-21 09:18] LABS: BASOPHILS % 0.6 % (0.0-2.0); EOSINOPHILS # 0.4 10^3/ul (0.0-0.5); EOSINOPHILS % 5.1 % (0.0-7.0); HEMATOCRIT 38.1 % (37.0-47.0); HEMOGLOBIN 12.4 g/dl (12.0-16.0); LYMPHOCYTES # 1.6 10^3/ul (0.8-2.9); LYMPHOCYTES % 23.2 % (15.0-51.0); MEAN CORPUSCULAR HEMOGLOBIN 31.9 pg (29.0-33.0); MEAN CORPUSCULAR HGB CONC 32.5 g/dl (32.0-37.0); MEAN CORPUSCULAR VOLUME 97.9 fl (82.0-101.0); MEAN PLATELET VOLUME 10.1 fl (7.4-10.4); MONOCYTE # 0.6 10^3/ul (0.3-0.9); MONOCYTES % 8.4 % (0.0-11.0); NEUTROPHIL # 4.3 10^3/ul (1.6-7.5); NEUTROPHILS % 62.3 % (39.0-77.0); PLATELET COUNT 268 10^3/UL (140-415); RED BLOOD COUNT 3.89 10^6/ul (4.20-5.40); RED CELL DISTRIBUTION WIDTH 12.8 % (11.5-14.5)
[2017-08-21] MEDS: IBUPROFEN 800 MG TAB PO (14:07)
== END 2017-08-21 15:40 | disposition home or self-care (01) | DRG 765 ==
LOC: OBT 13:35 → L-D 08-16 14:05 → OBT 14:13 → PP1 14:13 → L-D 08-17 04:11 → PP1 08-17 05:10
PROC: 10D00Z1 Extraction of Products of Conception, Low, Open Approach (ICD-10-PCS; principal; 2017-08-17 00:30)
DX: O60.14X1 Preterm labor third trimester with preterm delivery third trimester, fetus 1 (principal); K83.1 Obstruction of bile duct; O26.62 Liver and biliary tract disorders in childbirth; O60.14X2 Preterm labor third trimester with preterm delivery third trimester, fetus 2; O32.1XX2 Maternal care for breech presentation, fetus 2; O30.003 Twin pregnancy, unspecified number of placenta and unspecified number of amniotic sacs, third trimester; Z3A.33 33 weeks gestation of pregnancy; Z37.2 Twins, both liveborn
CPT/HCPCS: 36415; 36600; 76815; 76816; 76817; 76818; 76820; 80053; 81001; 82803; 83735; 83789; 85025; 85362; 85384; 85610; 85730; 86592; 86706; 86850; 86900; 86901; 87086; 88307; 90715; 97161; 99464